=== PATIENT | male | born 1970 | race Caucasian/White ===

== ENCOUNTER 2021-03-28 12:45 | Inpatient (IN) | payer MEDICAID, OTHER ==
[~2021-03-28] VITALS: Ht 165.1 cm; Wt 59.5 kg
[2021-03-28] MEDS ORDERED: BUPR1FIL3 SL ×2 (17:49→20:27)
[2021-03-28] MEDS ORDERED: loperamide 2mg capsule PO PRN (19:45)
[2021-03-28] MEDS ORDERED: mag hydrox/Alum hydrox/simeth 30ml oral suspension PO PRN (19:45)
[2021-03-28] MEDS ORDERED: magnesium hydroxide 30ml (MOM) UD suspension PO PRN (19:45)
[2021-03-28] MEDS ORDERED: traZODone 50mg tablet PO PRN (19:55)
[2021-03-28 20:02] VITALS: BP 141/96
[2021-03-28] MEDS: buprenorphine/naloxone 8MG-2MG SUBlingual film SL SCH (21:11)
[2021-03-28] MEDS: NICOTINE POLACRILEX 2 MG LOZENGE BC PRN (21:11)
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
[2021-03-29] MEDS: buprenorphine/naloxone 8MG-2MG SUBlingual film SL SCH ×2 (07:18→19:11)
[2021-03-29] MEDS: nicotine 21mg patch - 24 hr TD SCH (07:21)
[2021-03-29 07:36] LABS: HEMOGLOBIN A1C 6.3 % (4.5-6.2)
[2021-03-29 07:51] VITALS: BP 108/77
[2021-03-29 08:06] LABS: CHOL/HDL RATIO 3.7 (0.00-4.99); CHOLESTEROL 179 MG/DL (0-200); HDL CHOLESTEROL 48 MG/DL (35-60); LDL CHOLESTEROL 102 MG/DL (50-100); TRIGLYCERIDES 115 MG/DL (20-135)
--- NOTE | 2021-03-29 16:46 | NUR ---
Nursing Progress Note: Legal hold: 5150 Client on involuntary status for DTS Why they are here: Pts called and reported patient wanted to end his life. LE contacted pt and placed him on 5150 after he made statements that he wanted to end his life. Pts 31 year marriage recently ended. Pt states without a family I'm nothing. Pt states he wants to . Pt has been reporting he feels people are trying to frame him and people are watching him. Assessment What has happened this shift: Pt. received sitting on his bed in the dark this morning. Pt. received his medication and assessment 1: 1 completed with active listening and positive encouragement; pt denies any S/I, H/I, but reports recent MH stress and SI I just wanted to go to sleep and never wake up anymore. Pt. presents as depressed and guarded during our conversation and stated I dont know what Ill do when I leave here. Pt. ate his meals in the dining room, but remains isolated to himself and not interacting with cohorts. He did not attend group, but was encouraged to do so. Pt. spent a large part of his day sitting in his room starring out of the window. Speed Belt Sander Tender inquired how his day was going and pt. stated Im trying to get through today. SI/HI: Denies A/VH: Denies Sleep: 6.75 hrs per NOC shift, one nap ADL's: Independent Group attendance: No Were meds taken: Yes Any med S/E: None observed or reported Mental Status Exam Appearance: Older male in green unit scrubs Eye contact: Good Behavior: Cooperative, isolates Speech: Clear, normal rate and rhythm Mood: Depressed Affect: Congruent with mood Thought process: Linear, guarded Thought Content: getting through today Cognition: A&O x4 Insight: Fair Judgment: fair Interventions PRN's used: None Therapeutic interventions: Maintained a safe and supportive environment, therapeutic communication, ensured contract for safety, provided clear and simple instructions, and maintained Q 15 min safety checks. Restraints/seclusion/emergency medication: N/A Justification of Continued Inpatient Treatment: Pt. requires interruption of current crisis, medication adjustments, and a safe and therapeutic environment.
[2021-03-29] MEDS: NICOTINE POLACRILEX 2 MG LOZENGE BC PRN (17:26)
[2021-03-29 19:00] VITALS: BP 109/74
--- NOTE | 2021-03-29 23:20 | NUR ---
Nursing Progress Note: Legal hold: 5150 Client on involuntary status for DTS Why they are here: Pts called and reported patient wanted to end his life. LE contacted pt and placed him on 5150 after he made statements that he wanted to end his life. Pts 31 year marriage recently ended. Pt states without a family I'm nothing. Pt states he wants to . Pt has been reporting he feels people are trying to frame him and people are watching him. Assessment What has happened this shift: Pt mostly isolated to his room, lying in his bed awake. Pt denies being suicidal but hesitated when answering. Pt did not want to discuss much or elaborate on he is doing. Pt requested suboxone at 1900 and went back to bed. Pt denies having any concerns or needs. All hs meds taken without issue. SI/HI: Denies A/VH: Denies Sleep: see sleep assessment ADL's: Independent Group attendance: No Were meds taken: Yes Any med S/E: None observed or reported Mental Status Exam Appearance: Older male in green unit scrubs Eye contact: Good Behavior: Cooperative, isolates Speech: Clear, normal rate and rhythm Mood: Depressed Affect: Congruent with mood Thought process: Linear, guarded Thought Content: getting dcd and where to live Cognition: A&O x4 Insight: Fair Judgment: fair Interventions PRN's used: None Therapeutic interventions: Maintained a safe and supportive environment, therapeutic communication, ensured contract for safety, provided clear and simple instructions, and maintained Q 15 min safety checks. Restraints/seclusion/emergency medication: N/A Justification of Continued Inpatient Treatment: Pt. requires interruption of current crisis, medication adjustments, and a safe and therapeutic environment.
[2021-03-30] MEDS: buprenorphine/naloxone 8MG-2MG SUBlingual film SL SCH ×2 (07:12→20:38)
[2021-03-30] MEDS: duloxetine 30mg CAPSULE.DR PO SCH (07:12)
[2021-03-30] MEDS: NICOTINE POLACRILEX 2 MG LOZENGE BC PRN ×2 (07:12→15:45)
[2021-03-30] MEDS: nicotine 21mg patch - 24 hr TD SCH (07:13)
[2021-03-30 07:53] VITALS: BP 115/89
--- NOTE | 2021-03-30 17:31 | NUR ---
Nursing Progress Note: Legal hold: 5150 Client on involuntary status for DTS Why they are here: Pts called and reported patient wanted to end his life. LE contacted pt and placed him on 5150 after he made statements that he wanted to end his life. Pts 31 year marriage recently ended. Pt states without a family I'm nothing. Pt states he wants to . Pt has been reporting he feels people are trying to frame him and people are watching him. Assessment What has happened this shift: Pt. received sleeping in his bed. Pt. received his AM medication and assessment 1: 1 completed with active listening and positive encouragement; pt denies any S/I, H/I, but presented as guarded when SI was discussed. He is quiet and doesnt elaborate but acknowledged he has had a lot of stress lately and discussed I thought about trying to hurt myself before Pt. presents as depressed but stated I plan to go home from here I think Pt. ate his meals in the dining room, observed napping more often this shift, but observed socializing with roommate as well. We discussed the benefits of group therapy, and he was receptive and did attend the afternoon session. Bottom Sander approached pt. in the workman d/t noticing he appeared to be upset; he refused needing anyone to talk too. Later pt. approached senior medical writer and smiled asking for nicotine lozenge, and he reported Im feeling better. SI/HI: Denies A/VH: Denies Sleep: 6.75 hrs per NOC shift, one nap ADL's: Independent Group attendance: Yes Were meds taken: Yes Any med S/E: None observed or reported Mental Status Exam Appearance: Older male in green unit scrubs Eye contact: Good Behavior: Cooperative, isolates Speech: Clear, normal rate and rhythm Mood: Depressed Affect: Congruent with mood Thought process: Linear, guarded Thought Content: getting through today Cognition: A&O x4 Insight: Fair Judgment: fair Interventions PRN's used: Nicotine lozenge Therapeutic interventions: Maintained a safe and supportive environment, therapeutic communication, ensured contract for safety, provided clear and simple instructions, and maintained Q 15 min safety checks. Restraints/seclusion/emergency medication: N/A Justification of Continued Inpatient Treatment: Pt. requires interruption of current crisis, medication adjustments, and a safe and therapeutic environment.
[2021-03-30 19:19] VITALS: BP 108/71
--- NOTE | 2021-03-31 02:20 | NUR ---
Nursing Progress Note: Legal hold: 5150 Client on involuntary status for DTS Repot given by DIONICIO Dinero using SBAR Why they are here: Pts called and reported patient wanted to end his life. LE contacted pt and placed him on 5150 after he made statements that he wanted to end his life. Pts 31 year marriage recently ended. Pt states without a family I'm nothing. Pt states he wants to . Pt has been reporting he feels people are trying to frame him and people are watching him. Assessment What has happened this shift: Patient was observed sleeping in bed at beginning of shift. Patient sister called to check up on patient and get an update on how he was doing. Patient approved giving sister this information. Patient observed walking up and down hallway talking to other patents. When preforming 1:1 assessment on patient, patient appeared happy and was joking with nurses. Patient stated he was feeling better and his head felt clearer. Patient participated in snack time and took scheduled medications without issue. Patient later requested PRN Tylenol to assist with R hip pain. Patient watched tv in recreation room with other patients before retuning to room and going to sleep. Patient slept with no difficulty. SI/HI: Denies A/VH: Denies Sleep: see sleep assessment ADL's: Independent Group attendance: Yes Were meds taken: Yes Any med S/E: None observed or reported Mental Status Exam Appearance: Older male in green unit scrubs Eye contact: Good Behavior: Cooperative, isolates Speech: Clear, normal rate and rhythm Mood: Depressed Affect: Congruent with mood Thought process: Linear, guarded Thought Content: getting through today Cognition: A&O x4 Insight: Fair Judgment: fair Interventions PRN's used: Nicotine lozenge Therapeutic interventions: Maintained a safe and supportive environment, therapeutic communication, ensured contract for safety, provided clear and simple instructions, and maintained Q 15 min safety checks. Restraints/seclusion/emergency medication: N/A Justification of Continued Inpatient Treatment: Pt. requires interruption of current crisis, medication adjustments, and a safe and therapeutic environment.
[2021-03-31 07:27] VITALS: BP 106/75
[2021-03-31] MEDS: duloxetine 30mg CAPSULE.DR PO SCH ×2 (08:00→08:30)
[2021-03-31] MEDS: buprenorphine/naloxone 8MG-2MG SUBlingual film SL SCH ×2 (08:30→20:19)
[2021-03-31] MEDS: nicotine 21mg patch - 24 hr TD SCH (08:30)
[2021-03-31] MEDS: acetaminophen 325mg tablet PO PRN ×2 (08:54→20:23)
[2021-03-31] MEDS: NICOTINE POLACRILEX 2 MG LOZENGE BC PRN (15:27)
--- NOTE | 2021-03-31 16:53 | NUR ---
Nursing Progress Note: Legal hold: 5150 Client on involuntary status for DTS Report received from nurseOmega RN with use of SBAR Why they are here: Pts called and reported patient wanted to end his life. LE contacted pt and placed him on 5150 after he made statements that he wanted to end his life. Pts 31 year marriage recently ended. Pt states without a family I'm nothing. Pt states he wants to . Pt has been reporting he feels people are trying to frame him and people are watching him. Assessment What has happened this shift: Pt observed sleeping at the start of the shift. Pt up for meals and snacks sleeping in between each. Pt seen once up walking briefly in the halls. Pt is medication compliant and cooperative with staff and gets along well with peers. SI/HI: Denies A/VH: Denies Sleep: napped most of the shift. ADL's: Independent Group attendance: N/A Were meds taken: Yes Any med S/E: None observed or reported Mental Status Exam Appearance: Older short male in green unit scrubs Eye contact: Good Behavior: Cooperative, isolates Speech: Clear, normal rate and rhythm Mood: Depressed Affect: Congruent with mood Thought process: Linear, guarded Thought Content: "I spend most of my day in pain from multiple surgeries." Cognition: A&O x4 Insight: Fair Judgment: fair Interventions PRN's used: N/A Therapeutic interventions: 1:1 assessment with therapeutic communication and active listening medication administration/education/monitoring, provided clear and simple instructions, and maintained Q 15 min safety checks. Restraints/seclusion/emergency medication: N/A Justification of Continued Inpatient Treatment: Pt. requires interruption of current crisis, medication adjustments, and a safe and therapeutic environment.
[2021-03-31 19:18] VITALS: BP 148/84
--- NOTE | 2021-03-31 23:28 | NUR ---
Nursing Progress Note: Legal hold: 5150 Client on involuntary status for DTS Report received from nurse, Nathaniel Puri Lee RN with use of SBAR Why they are here: Pts called and reported patient wanted to end his life. LE contacted pt and placed him on 5150 after he made statements that he wanted to end his life. Pts 31 year marriage recently ended. Pt states without a family I'm nothing. Pt states he wants to . Pt has been reporting he feels people are trying to frame him and people are watching him. Assessment What has happened this shift: Patient was observed sleeping at beginning of shift. Patient got up to ask for night medications. Patient complained of hip pain and neck pain in 1:1 assessment. Patient stated mentally feeling better and just really wants to get out of here. Patient had accepted night medications and was given PRN Tylenol to help with hip pain. Patient walked up and down unit for another hour before going to bed. SI/HI: Denies A/VH: Denies Sleep: See sleep assessment ADL's: Independent Group attendance: N/A Were meds taken: Yes Any med S/E: None observed or reported Mental Status Exam Appearance: Older short male in green unit scrubs Eye contact: Good Behavior: Cooperative Speech: Clear, normal rate and rhythm Mood: tired Affect: Congruent with mood Thought process: Linear, guarded Thought Content: "I spend most of my day in pain from multiple surgeries." Cognition: A&O x4 Insight: Fair Judgment: fair Interventions PRN's used: N/A Therapeutic interventions: 1:1 assessment with therapeutic communication and active listening medication administration/education/monitoring, provided clear and simple instructions, and maintained Q 15 min safety checks. Restraints/seclusion/emergency medication: N/A Justification of Continued Inpatient Treatment: Pt. requires interruption of current crisis, medication adjustments, and a safe and therapeutic environment.
[2021-04-01] MEDS: NICOTINE POLACRILEX 2 MG LOZENGE BC PRN (06:10)
[2021-04-01] MEDS: buprenorphine/naloxone 8MG-2MG SUBlingual film SL SCH ×2 (08:05→20:10)
[2021-04-01] MEDS: nicotine 21mg patch - 24 hr TD SCH (08:05)
[2021-04-01] MEDS: acetaminophen 325mg tablet PO PRN ×2 (08:10→20:36)
[2021-04-01 08:26] VITALS: BP 124/86
[2021-04-01] MEDS: duloxetine 30mg CAPSULE.DR PO SCH (08:30)
--- NOTE | 2021-04-01 16:48 | NUR ---
Nursing Progress Note: Legal hold: 5150 Client on involuntary status for DTS Report received from nurseOmega RN with use of SBAR Why they are here: Pts called and reported patient wanted to end his life. LE contacted pt and placed him on 5150 after he made statements that he wanted to end his life. Pts 31 year marriage recently ended. Pt states without a family I'm nothing. Pt states he wants to . Pt has been reporting he feels people are trying to frame him and people are watching him. Assessment What has happened this shift: Pt up pacing the halls waiting for coffee. He is pleasant and calm. Pt up for meals and snacks. He is medication compliant. He has been up more this shift. Pt is on a voluntary and is looking forward to going back to [facility] where he lives. SI/HI: Denies A/VH: Denies Sleep: Napped ADL's: Independent Group attendance: N/A Were meds taken: Yes Any med S/E: None observed or reported Mental Status Exam Appearance: Older short male greyish hair wearing personal clothing Eye contact: Good Behavior: Cooperative, isolates Speech: Clear, normal rate and rhythm Mood: Pleasant, smiling Affect: Congruent with mood Thought process: Linear, circumstantial Thought Content: "I'm looking forward to going home." Cognition: A&O x4 Insight: Fair Judgment: fair Interventions PRN's used: N/A Therapeutic interventions: 1:1 assessment with therapeutic communication and active listening medication administration/education/monitoring, provided clear and simple instructions, and maintained Q 15 min safety checks. Restraints/seclusion/emergency medication: N/A Justification of Continued Inpatient Treatment: Pt. requires interruption of current crisis, medication adjustments, and a safe and therapeutic environment.
[2021-04-01 20:12] VITALS: BP 157/80
--- NOTE | 2021-04-02 00:36 | NUR ---
Nursing Progress Note: Legal hold: 5150 Client on involuntary status for DTS Report received from nurse, Mian RN with use of SBAR Why they are here: Pts called and reported patient wanted to end his life. LE contacted pt and placed him on 5150 after he made statements that he wanted to end his life. Pts 31 year marriage recently ended. Pt states without a family I'm nothing. Pt states he wants to . Pt has been reporting he feels people are trying to frame him and people are watching him. Assessment What has happened this shift: Pt up pacing the halls at change of shift. He is pleasant and calm. Pt up for snacks. He is medication compliant. Pt is on a voluntary and is looking forward to going back to [facility] where he lives. SI/HI: Denies A/VH: Denies Sleep: See sleep assessment ADL's: Independent Group attendance: N/A Were meds taken: Yes Any med S/E: None observed or reported Mental Status Exam Appearance: Older short male greyish hair wearing personal clothing Eye contact: Good Behavior: Cooperative, isolates Speech: Clear, normal rate and rhythm Mood: Pleasant, smiling Affect: Congruent with mood Thought process: Linear, circumstantial Thought Content: "I'm looking forward to going home." Cognition: A&O x4 Insight: Fair Judgment: fair Interventions PRN's used: N/A Therapeutic interventions: 1:1 assessment with therapeutic communication and active listening medication administration/education/monitoring, provided clear and simple instructions, and maintained Q 15 min safety checks. Restraints/seclusion/emergency medication: N/A Justification of Continued Inpatient Treatment: Pt. requires interruption of current crisis, medication adjustments, and a safe and therapeutic environment.
[2021-04-02] MEDS: acetaminophen 325mg tablet PO PRN (06:15)
[2021-04-02 08:00] VITALS: BP 137/82
[2021-04-02] MEDS: duloxetine 30mg CAPSULE.DR PO SCH (08:00)
[2021-04-02] MEDS: buprenorphine/naloxone 8MG-2MG SUBlingual film SL SCH (08:15)
[2021-04-02] MEDS: nicotine 21mg patch - 24 hr TD SCH (08:17)
[2021-04-02] MEDS ORDERED: NICO-687 TD (15:45)
--- NOTE | 2021-04-02 16:40 | NUR ---
Discharge Note: 1611 patient discharge via community health transportation. Patient is returning to his home to get his truck and then going to sleep at his step brother house [place]. Patient denies S/I H/I and agrees to the after care plan. All belongings and medication returned to patient. Follow-Up: Patient has been scheduled/referred to the following providers for post-hospital discharge and aftercare treatment. Psychiatrist: Appointment: 04/04 @ 8:30 w/ Dr Davidson [facility] [address] [place], [place] Primary Care Provider: Call to schedule your next appointment: Dr Miner [address] [place], [place] Assessment: 04/12 @ 10:00 w/ Lesia Rice [facility] [address] [place], [place] Discharge Address: [address] [place], [place] Transportation: [facility] Patient given community crisis services information and National suicide hotline handout.
== END 2021-04-02 16:11 | disposition home or self-care (01) | DRG 751 ==
LOC: ADULT MH 12:45
PROVIDERS: ADMIT Psychiatry & Neurology Psychiatry; ATTEND Psychiatry & Neurology Psychiatry
DX: F33.3 Major depressive disorder, recurrent, severe with psychotic symptoms (principal); R45.851 Suicidal ideations; F11.21 Opioid dependence, in remission; R41.843 Psychomotor deficit; F15.94 Other stimulant use, unspecified with stimulant-induced mood disorder; F17.210 Nicotine dependence, cigarettes, uncomplicated; G89.29 Other chronic pain
CPT/HCPCS: 36415; 80061; 83036; 87081